=== PATIENT | female | born 1970 | race Two or more races ===

== ENCOUNTER 2021-03-12 07:26 | Day surgery (SDC) | payer BC ==
[~2021-03-12 07:26] MED LIST: Lactated Ringers 1,000 ML IV SCH; Sodium Chloride 0.9% 10 ML Syringe FLUSH PRN; Sodium Chloride 0.9% 2.5 ML Syringe FLUSH PRN; Sodium Chloride 0.9% 20 ML SDV IV PRN
[2021-03-12] MEDS ORDERED: HYDROmorphone 1 MG/ML Syringe IVPUSH PRN (07:58)
[2021-03-12] MEDS ORDERED: Metoclopramide 10 MG/2 ML SDV IVPUSH PRN (07:58)
[2021-03-12] MEDS ORDERED: Morphine 2 MG/ML SYRINGE IVPUSH PRN (07:58)
[2021-03-12] MEDS ORDERED: Naloxone 0.4 MG/ML SDV IVPUSH PRN (07:58)
[2021-03-12] MEDS ORDERED: Ondansetron 4 MG/2 ML SDV IVPUSH PRN (07:58)
[2021-03-12] MEDS ORDERED: Albuterol 0.083% 2.5 MG/3 ML Neb Soln NEB PRN (07:58)
[2021-03-12] MEDS ORDERED: fentaNYL 100 MCG/2 ML SDV IVPUSH PRN (07:58)
--- NOTE | 2021-03-12 08:01 | PCM.PREANE ---
Preanesthetic Assessment - Anesthesia/Transfusion/Family Hx Anesthesia History: Prior Anesthesia Without Reaction Transfusion History: No Prior Transfusion(s) - Review of Systems General: No Symptoms Pulmonary: No Symptoms Cardiovascular: No Symptoms Gastrointestinal: No Symptoms Neurological: No Symptoms Other: Reports: None - Physical Assessment NPO Status Date: 03/12/21 NPO Status Time: 00:00 Vital Signs: Last Vital Signs Temp 97.7 F 03/12/21 07:40 Pulse 74 03/12/21 07:40 Resp 16 03/12/21 07:40 BP 130/60 03/12/21 07:40 Pulse Ox 98 03/12/21 07:40 Height: 5 ft 5 in Weight: 253 lb ASA Class: 3 Mental Status: Alert & Oriented x3 Airway Class: Mallampati = 2 Dentition: Reports: Normal Dentition ROM/Head Extension: Full Lungs: Clear to Auscultation, Normal Respiratory Effort Cardiovascular: Regular Rate, Regular Rhythm - Allergies Allergies/Adverse Reactions: Allergies Allergy/AdvReac Type Severity Reaction Status Date / Time No Known Allergies Allergy Verified 03/08/21 13:31 - Acknowledgements Anesthesia Type Planned: General Anesthesia Pt an Appropriate Candidate for the Planned Anesthesia: Yes Alternatives and Risks of Anesthesia Discussed w Pt/Guardian: Yes Pt/Guardian Understands and Agrees with Anesthesia Plan: Yes PreAnesthesia Questionnaire HEENT History: Reports: None Cardiovascular History: Reports: None Respiratory History: Reports: None Gastrointestinal History: Reports: GERD Genitourinary History: Reports: None 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: Dysfunctional Uterine Bleeding, Musculoskeletal History: Reports: None Neurological History: Reports: None Psychiatric History: Reports: None Endocrine/Metabolic History: Reports: Obesity/BMI 30+ Other Endocrine/Metabolic History: prediabetic Hematologic History: Reports: Anemia Immunologic History: Reports: None Oncologic (Cancer) History: Reports: None Dermatologic History: Reports: None - Past Surgical History Head Surgeries/Procedures: Reports: None HEENT Surgical History: Reports: None Cardiovascular Surgical History: Reports: None Respiratory Surgical History: Reports: None GI Surgical History: Reports: None Female Surgical History: Reports: Cystoscopy, Tubal Ligation Endocrine Surgical History: Reports: None Neurological Surgical History: Reports: None Musculoskeletal Surgical History: Reports: None Oncologic Surgical History: Reports: None Dermatological Surgical History: Reports: None - SUBSTANCE USE Tobacco Use Status *Q: Never Tobacco User - HOME MEDS Home Medications: Home Meds Ferrous Sulfate [Iron] 1 tab PO BID 03/08/21 [History] Omeprazole 40 mg PO DAILY 03/08/21 [History] - CURRENT (IN HOUSE) MEDS Current Meds: Current Medications Lactated Ringer's (Ringers, Lactated) 1,000 mls @ 125 mls/hr IV ASDIRECTED HERNAN Sodium Chloride (Sodium Chloride 0.9% 10 Ml Syringe) 10 ml FLUSH ASDIRECTED PRN PRN Reason: Keep Vein Open Sodium Chloride (Sodium Chloride 0.9% 2.5 Ml Syringe) 2.5 ml FLUSH ASDIRECTED PRN PRN Reason: Keep Vein Open Sodium Chloride (Sodium Chloride 0.9% 20 Ml Sdv) 10 ml IV ASDIRECTED PRN PRN Reason: IV Use
[2021-03-12] MEDS ORDERED: fentaNYL 250 MCG/5 ML SDV ONE (08:18)
[2021-03-12] MEDS ORDERED: Propofol 200 MG/20 ML SDV ONE (08:18)
[2021-03-12 09:40] LABS: BLOOD UREA NITROGEN,BUN 19 mg/dL (7.0-18.0); CHLORIDE,CL 103 mmol/L (98-107); GLUCOSE RANDOM 118 mg/dL (74-106); POTASSIUM,K 4.1 mmol/L (3.5-5.1); SODIUM,NA 137 mmol/L (136-145)
[2021-03-12] MEDS ORDERED: Ketorolac 30 MG/ML SDV ONE (10:10)
[2021-03-12] MEDS ORDERED: Dexamethasone 4 MG/ML 5 ML MDV ONE (10:10)
[2021-03-12] MEDS ORDERED: Ondansetron 4 MG/2 ML SDV ONE (10:10)
--- NOTE | 2021-03-12 10:41 | PCM.POSTAN ---
POST ANESTHESIA ASSESSMENT - MENTAL STATUS Mental Status: Alert, Oriented - VITAL SIGNS Vital Signs: Last Vital Signs Temp 98.4 F 03/12/21 10:21 Pulse 57 L 03/12/21 10:36 Resp 8 L 03/12/21 10:36 BP 111/58 L 03/12/21 10:36 Pulse Ox 96 03/12/21 10:36 - RESPIRATORY Respiratory Status: Respiratory Rate WNL, Airway Patent, O2 Saturation Stable - CARDIOVASCULAR CV Status: Pulse Rate WNL, Blood Pressure Stable - GASTROINTESTINAL GI Status: No Symptoms - POST OP HYDRATION Hydration Status: Adequate & Stable
--- NOTE | 2021-03-12 10:42 | PCM48HPAN ---
Post Anesthesia Note - EVALUATION WITHIN 48HRS OF ANESTHETIC Vital Signs in Normal Range: Yes Patient Participated in Evaluation: Yes Respiratory Function Stable: Yes Airway Patent: Yes Cardiovascular Function Stable: Yes Hydration Status Stable: Yes Pain Control Satisfactory: Yes Nausea and Vomiting Control Satisfactory: Yes Mental Status Recovered: Yes Vital Signs: Last Vital Signs Temp 98.4 F 03/12/21 10:21 Pulse 60 03/12/21 10:41 Resp 8 L 03/12/21 10:41 BP 109/57 L 03/12/21 10:41 Pulse Ox 99 03/12/21 10:41
[2021-03-12] MEDS ORDERED: Acetaminophen/HYDROcodone 325-5 MG Tab PO PRN (10:49)
--- NOTE | 2021-03-13 07:04 | OR ---
SURGEON: Fidencio Her MD DATE OF PROCEDURE: 03/12/2021 INDICATION FOR PROCEDURE: 50-year-old patient presented initially for abnormal uterine bleeding. The patient had heavy cycles for the past few months and was initially evaluated by her primary care provider, had ultrasound that showed a left ovarian cyst and some heterogeneous area near the cervix. She was evaluated in the office and had an endometrial biopsy performed with ECC and Pap, which were all unremarkable. She presented for followup after a few weeks with a repeat ultrasound, and the ultrasound showed the ovarian cyst had resolved, but there was a 7 cm mass protruding from the cervical os. On exam, a firm mass was noted to be protruding from the cervical os, it was pedunculated and attached to the anterior portion of the cervix. I discussed with the patient that since this mass has changed significantly from the exam a few weeks ago, I would advised her to proceed with surgical removal so that it can be evaluated for malignancy, and patient was agreeable. PREOPERATIVE DIAGNOSES: 1. Cervical mass. 2. Abnormal uterine bleeding. POSTOPERATIVE DIAGNOSES: 1. Cervical mass. 2. Abnormal uterine bleeding. PROCEDURE PERFORMED: Hysteroscopy, dilatation and curettage, and removal of cervical mass. ANESTHESIOLOGIST: Dr. Wilver Macdonald; and Hemant Hall CRNA. ANESTHESIA: General anesthesia. FINDINGS: A 5 cm x 3 cm firm pedunculated mass protruding from the anterior portion of the internal cervical os. It appears to be a pedunculated fibroid. The uterus was otherwise normal size. The endometrial cavity was diffusely hyperplastic. ESTIMATED BLOOD LOSS: 30 mL. DESCRIPTION OF PROCEDURE: The risks of the procedure were discussed with the patient including bleeding; infection; DVTs; and injury to surrounding organs including bladder, bowel, and ureter. Consent signed. Questions were answered. She was taken to the operating room. She was placed under general anesthesia without complications. Her legs were placed in dorsal lithotomy position with stirrups. She was prepped with Betadine and draped in a sterile fashion. Her bladder was drained with a straight catheter. A bimanual exam was done. The uterus was normal sized, anteverted, and mobile. No adnexal masses were felt. A weighted speculum was placed in the posterior vagina, and the anterior wall was retracted with a right angle retractor. There was a 5 cm x 3 cm firm circular mass protruding from the internal os of the cervix. Careful palpation showed it was attached to the anterior portion of the cervical os. The mass appeared to have the consistency of a fibroid. The mass was grasped with a single-toothed tenaculum and twisted over the attaching stalk, and gradually the mass was from its attachment in the cervix. It was sent to Pathology. The cervix was already 5 cm dilated. The uterus was sounded to 8 cm. The hysteroscope was placed in the uterus under direct visualization with normal saline as a distention medium. It was difficult to achieve distention because of the cervix being dilated. The endometrial lining appeared hyperplastic diffusely throughout the entire cavity. The hysteroscope was then removed. The fluid deficit was 75 mL. A sharp curette was inserted and endometrial curettings were obtained by carefully scraping 360 degrees. The endometrial curettings were placed on Telfa pads and sent to Pathology. The cervix was carefully examined and found to be hemostatic. The speculum was removed. The patient was cleaned and taken off dorsal lithotomy position. She was awakened from anesthesia and taken to the recovery room in stable condition. LAURA CYR /[id number] TINO
== END 2021-03-12 12:19 | disposition home or self-care (01) ==
LOC: MW.SDS 07:26
PROVIDERS: ATTEND Obstetrics & Gynecology
DX: D25.0 Submucous leiomyoma of uterus (principal); N88.9 Noninflammatory disorder of cervix uteri, unspecified; J45.909 Unspecified asthma, uncomplicated; E66.9 Obesity, unspecified; Z79.899 Other long term (current) drug therapy; Z90.49 Acquired absence of other specified parts of digestive tract; Z98.890 Other specified postprocedural states; Z68.41 Body mass index [BMI] 40.0-44.9, adult
CPT/HCPCS: 57500; 58558; 80053; 81025; 85027; 86850; 86900; 86901; J1100; J1885; J2370; J2405; J2704; J3010; J7120; 00952